=== PATIENT | male | born 2000 | race Caucasian/White ===

== ENCOUNTER 2022-04-02 08:51 | Emergency (ER) | payer OTHER ==
[2022-04-02] MEDS ORDERED: Dexamethasone 4 MG/ML SDV PO ONE (09:44)
== END 2022-04-02 10:01 | disposition home or self-care (01) ==
LOC: JP.ED 08:51
DX: J02.9 Acute pharyngitis, unspecified (principal); I10 Essential (primary) hypertension
CPT/HCPCS: 99282; J8540